=== PATIENT | male | born 1945 | race Caucasian/White ===

== ENCOUNTER → 2017-08-28 | Outpatient (CLI) | payer MEDICARE ==
[~2017-08-28] MED LIST: DOXA8TAB63 PO; DUTA0.5C PO; FINA5TAB4 PO; OXYC1TAB7 PO
== END | disposition home or self-care (01) ==
LOC: CFH 15:17
PROVIDERS: ATTEND Family Medicine
DX: N20.0 Calculus of kidney (principal); Z87.442 Personal history of urinary calculi
CPT/HCPCS: 71046; 72072; 74176